=== PATIENT | female | born 1990 | race American Indian/Alaskan Native ===

== ENCOUNTER 2025-02-23 18:51 | Emergency (ER) | payer OTHER ==
[~2025-02-23] VITALS: Ht 170.2 cm; Wt 75.0 kg
[2025-02-23 19:02] VITALS: O2SAT 100
[2025-02-23 19:06] VITALS: BP 135/76; PULSE 88; RESP 18; TEMP 36.8; O2SAT 100
== END 2025-02-23 21:02 | disposition left against medical advice (07) ==
LOC: ER 18:51
DX: N93.9 Abnormal uterine and vaginal bleeding, unspecified (principal); F41.9 Anxiety disorder, unspecified; Z53.21 Procedure and treatment not carried out due to patient leaving prior to being seen by health care provider; Z98.890 Other specified postprocedural states